=== PATIENT | male | born 1990 | race Caucasian/White ===

== ENCOUNTER → 2017-10-10 | Day surgery (SDC) | payer OTHER ==
[~2017-10-10] MED LIST: BACITRACIN 50,000 UNIT VIAL ONE; BUPIVACAINE HCL 0.5% INJ 30 ML VIAL INJ ONE; CEFAZOLIN SOD 1 GM VIAL ONE; DEXAMETHASONE SOD PHOS INJ 4 MG/ML VIAL ONE; DEXILANT60 MG PO; FENTANYL CITRATE/PF 100MCG/2 ML INJ ONE; KETOROLAC TROMETHAMINE 30 MG/ML VIAL ONE; LIDOCAINE HCL 2% LOCAL INJ 5 ML SDV VIAL INJ ONE; MIDAZOLAM HCL 2 MG/2 ML VIAL ONE; MUPIROCIN 2% OINT 22 GM TUBE ONE; NAPROXEN500 MG PO; ONDANSETRON HCL INJ 2 MG/ML VIAL ONE; PROPOFOL IV EMULSION 10 MG/ML 20 ML VIAL ONE; SEVOFLURANE INHAL SOLN 250 ML PEN BTL ONE
--- NOTE | 2017-10-10 09:15 | Operative Report ---
DATE OF PROCEDURE: October 10, 2017 PREOPERATIVE DIAGNOSIS: Fracture of right 5th metacarpal neck, angulated. POSTOPERATIVE DIAGNOSIS: Fracture of right 5th metacarpal neck, angulated. PROCEDURE: Closed reduction and percutaneous pinning of right 5th metacarpal neck fracture. ANESTHESIA: General. INDICATIONS: The patient is a 26-year-old right-hand dominant male who sustained a closed displaced fracture of the right 5th metacarpal neck approximately 8 days ago. Risks, benefits and alternatives of treatment were discussed with the patient. He is prepared to undergo the procedures outlined. DETAILS OF PROCEDURE: Patient was marked preoperatively in the holding area. He is brought to the operating theater, and after the induction of adequate general anesthesia he is prepped and draped in a supine position. A time out was performed. The mini-C-arm fluoroscope was brought. The fracture site was verified. The angulation of the fracture is verified as well. The patient was then prepped and draped. Using closed reduction technique, the fracture is reduced under fluoroscopic control. Once satisfactory anatomic alignment has been achieved, a 0.035 K-wires were driven under fluoroscopic control to traverse the fracture site at the right angles, and hold the fracture in alignment. At this point, the pins were then cut external to the skin and bent over. Bactroban ointment and Xeroform gauze were placed around the exit sites of the pins. A sterile bulking conforming bandage was applied to the hand, wrist and forearm. Then a fiberglass ulnar gutter cast was applied and held in place with a loosely wrapped Mitch wrap. The patient tolerated the procedure well, and was brought to the recovery room in satisfactory condition, and discharged with a postoperative instruction sheet, as well as a followup appointment. Job#: [id number]
== END | disposition home or self-care (01) ==
LOC: OR 05:11
PROVIDERS: ATTEND Plastic Surgery
DX: S62.336A Displaced fracture of neck of fifth metacarpal bone, right hand, initial encounter for closed fracture (principal); K21.9 Gastro-esophageal reflux disease without esophagitis; X58.XXXA Exposure to other specified factors, initial encounter; Z88.1 Allergy status to other antibiotic agents
CPT/HCPCS: 26608; J0690; J1100; J1885; J2001; J2250; J2405